=== PATIENT | male | born 1995 | race Caucasian/White ===

== ENCOUNTER 2016-12-30 23:24 | Emergency (ER) | payer BC ==
[2016-12-30] MEDS ORDERED: Ibuprofen 800 MG TAB ONE (23:49)
== END 2016-12-31 00:14 | disposition home or self-care (01) ==
LOC: ERS 23:24
DX: S06.0X0A Concussion without loss of consciousness, initial encounter (principal); S00.33XA Contusion of nose, initial encounter; W51.XXXA Accidental striking against or bumped into by another person, initial encounter; Y93.67 Activity, basketball
CPT/HCPCS: 99283

== ENCOUNTER 2018-01-28 10:43 | Outpatient (CLI) | payer BC ==
--- NOTE | 2018-01-28 12:17 | RAD ---
THREE VIEWS LEFT HAND: Date: 01-28-18 History: Injury to left hand a couple of weeks ago after playing golf. Twisting motion results in lef t hand pain. FINDINGS: There is no evidence of a fracture, dislocation, or other osseous abnormality involving the left hand . IMPRESSION: No acute osseous abnormality left hand. POS: [facility]
== END 2018-01-28 10:44 | disposition home or self-care (01) ==
LOC: SCSRAD 10:43
PROVIDERS: ATTEND Family Medicine
DX: M79.642 Pain in left hand (principal); R53.82 Chronic fatigue, unspecified

== ENCOUNTER 2019-01-21 19:38 | Emergency (ER) | payer BC ==
[2019-01-21 21:21] LABS: Hemoglobin 13.8 g/dL (14.0-18.0); Mean Corpuscular HGB CONC 35.6 g/dL (32.0-36.0); Mean Corpuscular Hemoglobin 31.7 pg (27.0-31.0); Mean Corpuscular Volume 88.9 fL (78.0-98.0); Mean Platelet Volume 7.4 fL (7.4-10.4); Platelet Count 195 thou/uL (130-400); RBC Distribution Width 10.8 % (11.5-14.5); Red Blood Cell (RBC) Count 4.36 mill/uL (4.70-6.10); White Blood Cell (WBC) Count 4.9 thou/uL (4.8-10.8)
[2019-01-21 21:26] LABS: Eosinophils 6 % (0-10); Lymphocytes 55 % (21-51); MDiff Complete? YES; Monocytes 6 % (0-10); Neutrophil 33 % (42-75); Platelet Morphology Comment Appears Adequate
[2019-01-21 21:32] LABS: ALT (SGPT) 12 U/L (8-55); AST (SGOT) 21 U/L (5-34); Albumin 4.5 g/dL (3.5-5.0); Alkaline Phosphatase 66 U/L (40-110); Anion Gap 10 mmol/L (10-20); BUN (Urea Nitrogen) 16 mg/dL (8.9-20.6); Bilirubin, Total 1.1 mg/dL (0.2-1.2); Calc. Creatinine Clearance 0 mL/min (70-130); Calcium 9.5 mg/dL (7.8-10.44); Carbon Dioxide 33 mmol/L (22-29); Chloride 103 mmol/L (98-107); Estimated GFR-MDRD 69; Globulin 2.5 g/dL (2.4-3.5); Glucose 120 mg/dL (70-105); Potassium 4.1 mmol/L (3.5-5.1); Sodium 142 mmol/L (136-145)
--- NOTE | 2019-01-21 22:29 | RAD ---
EXAM: Two views chest PROVIDED CLINICAL HISTORY: Chest pain COMPARISON: None FINDINGS: Cardiac and mediastinal silhouette appears within normal limits. Lungs appear free of significant opa city. No pleural fluid or pneumothorax apparent. IMPRESSION: No evidence for an acute cardiopulmonary process.
== END 2019-01-21 23:01 | disposition home or self-care (01) ==
LOC: ERS 19:38
DX: R07.89 Other chest pain (principal); F17.290 Nicotine dependence, other tobacco product, uncomplicated; Z79.899 Other long term (current) drug therapy
CPT/HCPCS: 36415; 71046; 80053; 84484; 85025; 93005